=== PATIENT | male | born 1980 | race Caucasian/White ===

== ENCOUNTER 2020-07-08 00:37 | Emergency (ER) | payer SELFPAY ==
[~2020-07-08] VITALS: Ht 182.9 cm; Wt 82.0 kg
[~2020-07-08 00:37] MED LIST: ABILIFY10 MG PO; AMOXICILLIN500 MG PO; ANUCORT-HC25 MG RE; EPIPEN0.3 MG IM; LORTAB 10-325 M1 TAB PO; MEDDOSEPAK PO; TRIHEXYPHEN2 MG PO
[2020-07-08 01:09] LABS: HEMATOCRIT 53.9 % (39.0-50.0); HEMOGLOBIN 17.5 g/dl (14.0-18.0); IMMATURE GRANULOCYTES 0.4 % (0.0-5.0); MEAN CELL VOLUME 86.4 fL CALC (80.0-100.0); MEAN CORPUSCULAR HGB CONC 32.5 g/dL CAL (32.0-36.0); NEUT# 16.02 thou/uL (1.82-7.42); RED BLOOD COUNT 6.24 mill/uL (4.70-6.10); RED CELL DISTRI WIDTH 12.6 % (11.5-15.5)
[2020-07-08 01:28] LABS: ALKALINE PHOSPHATASE 80 u/l (38-126); BUN 15 mg/dL (9-20); BUN/CREATININE RATIO 13 (12-20 (CALC)); CHLORIDE 103 mmol/l (95-108); CREATININE 1.2 mg/dL (0.7-1.3); ETHYL ALCOHOL 0 mg/dl (0-30); GFR > 60 ML/MIN (>=60 (CALC)); GFR FOR AFR.AMER. > 60 ML/MIN (>=60 (CALC)); POTASSIUM 3.9 mmol/l (3.5-5.1); SGOT/AST 30 u/l (17-59); SODIUM 139 mmol/l (137-146); TOTAL PROTEIN 6.5 g/dL (6.3-8.2)
[2020-07-08 01:29] LABS: ALBUMIN 4.4 g/dL (3.2-5.0); ANION GAP 15 (6-22 (CALC)); BILIRUBIN, TOTAL 1.3 mg/dL (0.0-1.4); CARBON DIOXIDE 25 mmol/l (22-30)
[2020-07-08 04:26] LABS: URINE BILIRUBIN - DIPSTICK NEGATIVE (NEGATIVE); URINE BLOOD DIPSTICK NEGATIVE (NEGATIVE); URINE COLOR YELLOW; URINE GLUCOSE - DIPSTICK NEGATIVE (NEGATIVE); URINE KETONE NEGATIVE (NEGATIVE); URINE LEUK ESTERASE NEGATIVE (NEGATIVE); URINE NITRITE - DIPSTICK NEGATIVE (Negative); URINE PH 5.5 (4.5-8.0); URINE PROTEIN - DIPSTICK 100 mg/dL (NEG-TRACE); URINE SPECIFIC GRAVITY >=1.030
[2020-07-08 04:35] LABS: URINE MUCUS FEW hpf (NONE-FEW); URINE SQUAMOUS EPITHELIAL CELL FEW EPI/hpf (0-FEW)
[2020-07-08] MEDS ORDERED: LEVAQUIN750 MG PO (05:25)
[2020-07-08 06:48] VITALS: BP 109/59
== END 2020-07-08 06:48 | disposition home or self-care (01) | DRG 896 ==
LOC: ED 00:37
PROVIDERS: Family Medicine
DX: F15.10 Other stimulant abuse, uncomplicated (principal); J18.9 Pneumonia, unspecified organism; F12.10 Cannabis abuse, uncomplicated; S01.01XA Laceration without foreign body of scalp, initial encounter; F17.200 Nicotine dependence, unspecified, uncomplicated; X58.XXXA Exposure to other specified factors, initial encounter

== ENCOUNTER 2020-08-06 06:04 | Emergency (ER) | payer SELFPAY ==
[~2020-08-06] VITALS: Ht 182.9 cm; Wt 84.1 kg
[~2020-08-06 06:04] MED LIST changes: +LEVAQUIN750 MG PO
[2020-08-06] MEDS ORDERED: BACTRIM DS1 TAB PO (06:34)
[2020-08-06 06:50] VITALS: BP 153/89
== END 2020-08-06 06:50 | disposition home or self-care (01) | DRG 607 ==
LOC: ED 06:04
DX: L73.9 Follicular disorder, unspecified (principal); F17.200 Nicotine dependence, unspecified, uncomplicated

== ENCOUNTER 2020-08-13 06:13 | Emergency (ER) | payer SELFPAY ==
[~2020-08-13] VITALS: Ht 182.9 cm; Wt 84.0 kg
[~2020-08-13 06:13] MED LIST changes: +BACTRIM DS1 TAB PO
[2020-08-13] MEDS ORDERED: KEFLEX500 M1 PO (06:45)
[2020-08-13 06:56] VITALS: BP 128/81
== END 2020-08-13 07:06 | disposition home or self-care (01) | DRG 603 ==
LOC: ED 06:13
DX: L02.32 Furuncle of buttock (principal); N49.2 Inflammatory disorders of scrotum; F17.200 Nicotine dependence, unspecified, uncomplicated

== ENCOUNTER 2020-09-12 02:08 | Emergency (ER) | payer SELFPAY ==
[~2020-09-12] VITALS: Ht 182.9 cm; Wt 79.0 kg
[~2020-09-12 02:08] MED LIST changes: +KEFLEX500 M1 PO
[2020-09-12] MEDS ORDERED: FLEXERIL5 MG PO (02:30)
[2020-09-12 02:45] VITALS: BP 121/78
== END 2020-09-12 02:45 | disposition home or self-care (01) | DRG 607 ==
LOC: ED 02:08
DX: L73.9 Follicular disorder, unspecified (principal); F17.200 Nicotine dependence, unspecified, uncomplicated

== ENCOUNTER 2022-01-14 03:33 | Emergency (ER) | payer SELFPAY ==
[~2022-01-14] VITALS: Ht 182.9 cm; Wt 88.0 kg
[~2022-01-14 03:33] MED LIST changes: +FLEXERIL5 MG PO
[2022-01-14 04:04] VITALS: BP 135/88
[2022-01-14 04:15] VITALS: BP 135/91
[2022-01-14 04:25] VITALS: BP 141/88
[2022-01-14 04:30] VITALS: BP 139/93
[2022-01-14 04:45] VITALS: BP 139/99
[2022-01-14 04:57] VITALS: BP 139/99
== END 2022-01-14 04:57 | disposition left against medical advice (07) | DRG 603 ==
LOC: ED 03:33
DX: L03.116 Cellulitis of left lower limb (principal); S93.602A Unspecified sprain of left foot, initial encounter; F20.9 Schizophrenia, unspecified; F17.200 Nicotine dependence, unspecified, uncomplicated; X58.XXXA Exposure to other specified factors, initial encounter; Z91.19 Patient's noncompliance with other medical treatment and regimen

== ENCOUNTER 2022-02-08 10:33 | Emergency (ER) | payer SELFPAY ==
[2022-02-08] VITALS (15 sets, daily range): BP systolic 135–171; BP diastolic 83–110
[~2022-02-08] VITALS: Ht 182.9 cm; Wt 88.4 kg
[2022-02-08 13:03] LABS: URINE BILIRUBIN - DIPSTICK NEGATIVE (NEGATIVE); URINE BLOOD DIPSTICK LARGE (NEGATIVE); URINE COLOR RED; URINE GLUCOSE - DIPSTICK NEGATIVE (NEGATIVE); URINE KETONE NEGATIVE (NEGATIVE); URINE LEUK ESTERASE NEGATIVE (NEGATIVE); URINE NITRITE - DIPSTICK NEGATIVE (Negative); URINE PROTEIN - DIPSTICK 30 mg/dL (NEG-TRACE); URINE SPECIFIC GRAVITY >=1.030; URINE UROBILINOGEN - DIPSTICK 0.2 E.U./dL (0.2)
[2022-02-08 13:04] LABS: URINE RBC >100 RBC/hpf (0-5); URINE SPERM MANY hpf (NONE-RARE); URINE WBC 50-100 WBC/hpf (0-5)
[2022-02-08 13:07] LABS: IMMATURE GRANULOCYTES 0.1 % (0.0-5.0); MEAN CELL VOLUME 86.9 fL CALC (80.0-100.0); MEAN CORPUSCULAR HGB 28.7 pG CALC (26.0-32.0); NEUT# 6.67 thou/uL (1.82-7.42); RED BLOOD COUNT 5.33 mill/uL (4.70-6.10); RED CELL DISTRI WIDTH 12.7 % (11.5-15.5)
[2022-02-08 13:10] LABS: HEMATOCRIT 46.3 % (39.0-50.0); HEMOGLOBIN 15.3 g/dl (14.0-18.0)
[2022-02-08 13:26] LABS: ALKALINE PHOSPHATASE 87 u/l (38-126); ANION GAP 11 (6-22 (CALC)); BUN 10 mg/dL (9-20); BUN/CREATININE RATIO 15 (12-20 (CALC)); CARBON DIOXIDE 27 mmol/l (22-30); CHLORIDE 104 mmol/l (95-108); CREATININE 0.7 mg/dL (0.7-1.3); GFR > 60 ML/MIN (>=60 (CALC)); GFR FOR AFR.AMER. > 60 ML/MIN (>=60 (CALC)); POTASSIUM 4.2 mmol/l (3.5-5.1); SGOT/AST 19 u/l (17-59); SODIUM 137 mmol/l (137-146); TOTAL PROTEIN 6.8 g/dL (6.3-8.2)
[2022-02-08 13:27] LABS: BILIRUBIN, TOTAL 0.5 mg/dL (0.0-1.4)
== END 2022-02-08 15:11 | disposition left against medical advice (07) | DRG 690 ==
LOC: ED 10:33
PROVIDERS: Internal Medicine
DX: N30.01 Acute cystitis with hematuria (principal); F17.210 Nicotine dependence, cigarettes, uncomplicated; Z91.19 Patient's noncompliance with other medical treatment and regimen